=== PATIENT | male | born 1960 | race Caucasian/White ===

== ENCOUNTER 2017-07-15 17:30 | Emergency (ER) | payer MEDICARE, MEDICAID ==
[~2017-07-15] VITALS: Ht 182.9 cm; Wt 97.5 kg
[~2017-07-15 17:30] MED LIST: AZAT50TA18 PO; CAL025T; LOSA100T27 PO; METO-169 PO; PRED5PAK2 PO; RANI300T3 PO; SEVE800T8 PO
[2017-07-15 18:00] VITALS: BP 165/85
[2017-07-15 19:35] LABS: Basophils # (auto) 0.1 uL; Eosinophils # (auto) 0 uL; Monocytes # (auto) 1.3 uL; Neutrophils # (auto) 4.2 uL; Nucleated Red Blood Cells % 0.7 %
[2017-07-15 19:37] LABS: Basophils % (auto) 1.1 % (0.0-2.0); Eosinophils % (auto) 0.5 % (0.0-7.0); Hematocrit 49.8 % (41.0-53.0); Hemoglobin 16.4 g/dL (13.5-17.5); Lymphocytes # (auto) 1.1 uL; Mean Corpuscular Hemoglobin 26.1 pg (28.0-32.0); Mean Corpuscular Volume 79.1 fL (80.0-100.0); Platelet Count (auto) 173 10^3/uL (140-450); Red Cell Distribution Width 13.8 % (11.8-14.3); White Blood Cell 6.7 10^3/uL (4.4-10.8)
[2017-07-15 19:44] LABS: Monocytes % (auto) 19.4 % (0.0-12.0)
[2017-07-15 19:55] LABS: Albumin 4.2 g/dL (3.4-5.0); BUN/Creatinine Ratio 9.2; Bilirubin, Total 0.6 mg/dL (0.2-1.0); Potassium 3.7 mmol/L (3.5-5.1); Total Protein 7.9 g/dL (6.4-8.2)
== END 2017-07-15 23:05 | disposition home or self-care (01) ==
LOC: ER 17:37
DX: B34.9 Viral infection, unspecified (principal); I12.0 Hypertensive chronic kidney disease with stage 5 chronic kidney disease or end stage renal disease; N18.6 End stage renal disease; Z94.0 Kidney transplant status
CPT/HCPCS: 36415; 71010; 80053; 85025